=== PATIENT | male | born 1990 | race Caucasian/White ===

== ENCOUNTER 2023-12-23 06:16 | Emergency (ER) | payer MEDICARE, MEDICAID, SELFPAY ==
[2023-12-23 06:22] VITALS: BP 132/94; PULSE 61; RESP 16; TEMP 36.7; O2SAT 98; BMI 34.3
[2023-12-23] MEDS: METHYLPREDNISOLONE SOD SUCC PF 125 MG/2 ML VIAL IM (06:43)
--- NOTE | 2023-12-23 06:43 | ED.GENADUL1 ---
HPI - General Adult General Chief complaint: Dental/Oral Stated complaint: SORE THROAT Time Seen by Provider: 12/23/23 06:28 Source: patient Mode of arrival: walk-in Limitations: no limitations History of Present Illness HPI narrative: Patient woke this morning with sensation of throat swelling - he denied pain - said that it felt like the throat was swollen. He is still able to talk and swallow and control his secretions. No fever or vomiting. No ear pain, nasal congestion or runny nose. Nothing taken at home for this. he told the nurse that he has gotten this before - between winter and spring . Related Data Home Medications Medication Instructions Recorded Confirmed No Known Home Medications 12/23/23 12/23/23 Allergies Allergy/AdvReac Type Severity Reaction Status Date / Time No Known Drug Allergies Allergy Verified 12/23/23 06:25 Exam Narrative Exam Narrative: Nurses notes and vital signs reviewed and patient is not hypoxic. afebrile General: Well-appearing and in no apparent distress. Skin: Warm, dry, no pallor noted. No rash. Head: Normocephalic, atraumatic. Neck: Supple, non-tender. No cervical lymphadenopathy Eye: Pupils are equal, round and EOMI. No scleral icterus. Ears, Nose, Mouth, and Throat: TM are clear, no rhinorrhea or nasal mucosal hypertrophy. Oral mucosa is moist, minimal posterior oropharynx erythema with minimal swelling, uvula is mid-line, no exudates. Airway not compromised. Cardiovascular: Regular Rate and Rhythm without murmur, gallop or rub. Respiratory: No accessory muscle use or respiratory distress. Lungs are clear to auscultation, no wheezing, rales or rhonchi Musculoskeletal: normal ROM Neurological: A&O x4. No cranial nerve dysfunction observed. No truncal ataxia. Moves all extremities. Sensation intact. Psychiatric: Cooperative and interactive. Normal mood and affect. Constitutional Vital Signs, click to edit/add: Last Vital Signs Temp 98.1 F 12/23/23 06:22 Pulse 61 12/23/23 06:22 Resp 18 12/23/23 06:51 BP 132/94 H 12/23/23 06:22 Pulse Ox 98 12/23/23 06:22 O2 Del Method Room Air 12/23/23 06:22 Course Vital Signs Vital signs: Vital Signs Temperature 98.1 F 12/23/23 06:22 Pulse Rate 61 12/23/23 06:22 Respiratory Rate 16 12/23/23 06:22 Blood Pressure 132/94 H 12/23/23 06:22 Pulse Oximetry 98 12/23/23 06:22 Oxygen Delivery Method Room Air 12/23/23 06:22 Temperature 98.1 F 12/23/23 06:22 Pulse Rate 61 12/23/23 06:22 Respiratory Rate 18 12/23/23 06:51 Blood Pressure 132/94 H 12/23/23 06:22 Pulse Oximetry 98 12/23/23 06:22 Oxygen Delivery Method Room Air 12/23/23 06:22 Medical Decision Making MDM Narrative Medical decision making narrative: Patient was given IM Solu-Medrol and oral Benadryl in the emergency department. Strep screen was also obtained and sent for testing. Lab result pending - patient signed out to Dr Collazo at 7am shift change. Lab Data Lab results reviewed: Yes I reviewed the patient's lab results Discharge Plan Discharge Stand Alone Forms: Portal Instructions Chief Complaint: Dental/Oral Clinical Impression: Pharyngeal swelling Patient Disposition: Still a Patient Time of Disposition Decision: 06:50 Prescriptions / Home Meds: No Action No Known Home Medications Referrals: Physician,Non-Staff, MD [Primary Care Provider] - 1 week
[2023-12-23] MEDS: DIPHENHYDRAMINE HCL 25 MG CAPSULE PO (06:44)
[2023-12-23 06:51] VITALS: RESP 18
[2023-12-23 07:13] LABS: Internal Control Within Normal Limits; Strep A Antigen Screen Negative
== END 2023-12-23 07:37 | disposition home or self-care (01) ==
PROVIDERS: Emergency Medicine; Emergency Provider Emergency Medicine
DX: J02.9 Acute pharyngitis, unspecified (principal)
CPT/HCPCS: 87070; 87880; 96372; 99284; J2930

== ENCOUNTER 2024-09-27 16:54 | Emergency (ER) | payer MEDICARE, MEDICAID, SELFPAY ==
[2024-09-27 16:56] VITALS: BP 149/106; PULSE 84; TEMP 36.6; O2SAT 96; BMI 28.7
--- NOTE | 2024-09-27 17:00 | PC.NURSE ---
patient reports he has been battling congestion for the past week. Patient noted to be unkempt and has bilateral eye drainage and swelling and admits to rubbing eyes a lot
--- OUTSIDE RECORDS SUMMARY | 2024-09-27 17:19 | XMS_ITS | CCD ---
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 Name Role Phone Bina Keith Unavailable Medications Current Medications Medication Drug Class(es) Dates Sig (Normalized) Sig (Original) Penicillin (1 source) Start: 08-21-2022 take 1 tablet by mouth three times daily Penicillin VK 500mg 500mg 1 tab(s) Oral 3 times a day for 10 day(s) Aug, Active Problems Problem Classification Problem Date Documented Da te Episodic/Chronic Disorders of teeth and jaw (2 sources) Dental caries, unspecified; Translations: [Other specified disorders of teeth and supporting structures] Episodic Immunizations and screening for infectious disease (2 sources) Contact with and (suspected) exposure to other viral communicable diseases; Translations: [Contact with and (suspected) exposure to other viral communicable diseases] Episodic Other upper respiratory infections (1 source) Acute upper respiratory infection, unspecified Episodic Results Test Name Value Interpretation Reference Range Facil ity COVID/FLU RT-PCRon SARS-CoV-2 (COVID-19) RNA ROBINSON+probe Ql (Unsp spec) Negative [employer] Other COVID/FLU RT-PCR Negative [facility] Other Quick Strepon 10-14-2022 S. pyogenes Org specific cx Ql (Throat) Negative [facility] [employer] [facility] Other Quick Strep [employer] Other Vital Signs Date Time Vital Sign Value Performing Clinician Facility 10-14-2022 11:30-0500 Body height 175.26 cm Bina Keith Other [facility] Other 01-07-2023 11:30-0500 Body mass index (BMI) [Ratio] 31.75 kg/m2 Bina Inna Other [facility] Other 10-14-2022 11:30-0500 Body temperature 98 [degF] Bina Inna Other [facility] Other 10-14-2022 11:30-0500 Body weight 97.52 kg Bina Inna Other [facility] Other 10-14-2022 11:30-0500 Diastolic blood pressure 78 mm[Hg] Bina Inna Other [facility] Other 10-14-2022 11:30-0500 Respiratory rate 18 /min Bina Inna Other [facility] Other 10-14-2022 11:30-0500 SaO2% (BldA) [Mass fraction] 98 % Bina Inna Other [facility] Other 10-14-2022 11:30-0500 Systolic blood pressure 137 mm[Hg] Bina Inna Other [facility] Other 08-21-2022 16:05-0500 Body height 175.26 cm Bina Inna Other [facility] Other 08-21-2022 16:05-0500 Body mass index (BMI) [Ratio] 30.86 kg/m2 Bina Inna Other [facility] Other 08-21-2022 16:05-0500 Body temperature 97.2 [degF] Bina Inna Other [facility] Other 08-21-2022 16:05-0500 Body weight 94.8 kg Bina Keith Other [facility] Other 08-21-2022 16:05-0500 Respiratory rate 18 /min Bina Keith Other [facility] Other 08-21-2022 16:05-0500 SaO2% (BldA) [Mass fraction] 99 % Bina Keith Other [facility] Other Encounters Encounter Date Encounter Type Care Provider Facility Start: 10-14-2022 End: 10-14-2022 ambulatory Bina Inna Other [facility] Other Start: 10-14-2022 Office outpatient vi sit 25 minutes Bina Keith [facility] Start: 08-21-2022 End: 08-21-2022 ambulatory Bina Inna Other [facility] Other Start: 08-21-2022 Office outpatient ne w 20 minutes Bina Keith [facility] Payers Date Payer Category Payer Medicare [id number] Medicaid [id number] 2. [id number] Medicare [id number] 2.1 [id number] Social History Date Type Detail Facility Sex Assigned At [facility] Other Evaluation note 10-14-2022 Note Date & Type Note Facility 10-14-2022 Evaluation note Encounter Date Diagnosis Assessment Notes Oct, Contact with and (suspected) exposure to other viral communicable diseases (ICD-10 - Z20.828) Oct, Viral upper respiratory infection (ICD-10 - J06.9) Viral upper respiratory infection: adult home care material was printed Drink plenty fluids, get plenty of rest. Take Tylenol or Motrin as needed for aches pains or fevers. Follow-up with your family physician if no improvement in 2 to 3 days [facility] Other Evaluation note 08-21-2022 Note Date & Type Note Facility 08-21-2022 Evaluation note Encounter Date Diagnosis Assessment Notes Aug, Dental decay (ICD-10 - K02.9) Tooth decay home care material was printed Drink plenty fluids, get plenty of rest. Take the penicillin as prescribed until gone. Take ibuprofen, 600 mg 3-4 times a day with food as needed for mild to moderate pain. For severe pain add 2 extra strength Tylenol to your Motrin dose. Follow-up with your dentist as soon as possible. Aug, Dentalgia (ICD-10 - K08.89) [facility] Other Additional Source Comments REASON FOR VISIT (unrecogniz ed section and content) BOTTOM LEFT TOOTH/JAW PAIN, POSS INFECTIONSORE THROAT, CONGESTION FOR RECORDS PERTAINING TO PATIENTS WHO ARE OR HAVE BEEN ENROLLED IN A CHEMICAL DEPENDENCY/SUBSTANCEABUSE PROGRAM, SOME INFORMATION MAY BE OMITTED. This clinical summary was aggregated from multiple sources. Caution should be exercised in using it in the provision of clinical care. This summary normalizes information from multiple sources, and as a consequence, information in this document may materially change the coding, format and clinical context of patient data. In addition, data may be omitted in some cases. CLINICAL DECISIONS SHOULD BE BASED ON THE PRIMARY CLINICAL RECORDS. [facility]. provides no warranty or guarantee of the accuracy or completeness of information in this document.
--- NOTE | 2024-09-27 17:21 | XR_ITS ---
[address] [address] Patient Name: OMARI KAMINSKI MRN: [id number] date: 1990 Sex: M Assigned Patient Location: ER Current Patient Location: Accession/Order Number: [id number] Exam Date: 09/27/2024 17:35 Report Date: 09/27/2024 20:04 At the request of: TOMMIE BALBUENA Procedure: XR chest 1V PORTABLE CHEST X-RAY. INDICATION: Cough. COMPARISON: None. TECHNIQUE: Single AP portable chest radiograph. FINDINGS: TUBES AND LINES: None. LUNGS: Lungs are clear. PLEURA: No effusions or pneumothorax. HEART AND MEDIASTINUM: Within normal limits for portable technique. OSSEOUS STRUCTURES: No acute abnormality. XR/XR chest 1V IMPRESSION: No acute findings. Electronically authenticated by: KAYLEE CHAUHAN Date: 09/27/2024 20:04
[2024-09-27] MEDS: ERYTHROMYCIN OP OINT 0.5% 1 GM TUBE EYE-BOTH (17:36)
--- NOTE | 2024-09-27 17:56 | ED_ITS ---
HPI - URI/Sore Throat General Chief Complaint: Upper Respiratory Infection Stated Complaint: SICKNESS Time Seen by Provider: 09/27/24 17:15 Source: patient Limitations: no limitations History of Present Illness HPI Narrative: Patient coming to us with generalized feeling of being sick, associated with a cough that is the main concern that he is here in addition to bilateral eye irritation and drainage, the patient mentioned that he have some sore throat also earlier. The patient has a history of smoking less than 1 pack/day No history of shortness of breath Related Data Previous Rx's ?Medication ?Instructions ?Recorded guaifenesin 600 mg tablet, 600 mg PO BID PRN cough #10 tabs 09/27/24 extended release 12 hr (Mucinex) tobramycin 0.3 % eye drops 2 drp ophthalmic (eye) Q4H #5 mL 09/27/24 Allergies Allergy/AdvReac Type Severity Reaction Status Date / Time No Known Drug Allergies Allergy Verified 12/23/23 06:25 Review of Systems ROS Status of ROS 10 or more systems reviewed and unremark able except as noted in history and below PFSH PFSH Social History Little interest or pleasure in doing things: not at all Feeling down, depressed, or hopeless: not at all Exam Narrative Exam Narrative: Nurses notes and vital signs reviewed and patient is not hypoxic. General: Well-appearing and in no apparent distress. Skin: Warm, dry, no pallor noted. No rash. Head: Normocephalic, atraumatic. Neck: Supple, non-tender. Eye: Pupils are equal, round and there is conjunctival erythema bilaterally no hyphema or hypopyon and there is no signs of ulceration, pupils are reactive Ears, Nose, Mouth, and Throat: TM are clear, no nasal mucosal hypertrophy. Oral mucosa is moist, no posterior oropharynx erythema, uvula is mid-line Cardiovascular: Regular Rate and Rhythm without murmur, gallop or rub. Respiratory: Decreased air entry bilaterally with some rhonchi heard in the left side Back: No midline thoracic or lumbar vertebral tenderness. No CVA tenderness Musculoskeletal: normal ROM, no calf or popliteal tenderness, no lower extremity edema/swelling GI: Abdomen is soft, non-distended. Normal bowel sounds. No masses appreciated. No tenderness to palpation. No rebound, guarding, or rigidity noted. Neurological: A&O x4. No cranial nerve dysfunction observed. No truncal ataxia. Moves all extremities. Sensation intact. Psychiatric: Cooperative and interactive. Normal mood and affect. Constitutional Vital Signs, click to edit/add: Last Vital Signs Temp 97.9 F 09/27/24 16:56 Pulse 84 09/27/24 16:56 Resp 16 09/27/24 16:56 BP 149/106 H 09/27/24 16:56 Pulse Ox 96 09/27/24 16:56 O2 Del Method Room Air 09/27/24 16:56 Course Vital Signs Vital signs: Vital Signs Temperature 97.9 F 09/27/24 16:56 Pulse Rate 84 09/27/24 16:56 Respiratory Rate 16 09/27/24 16:56 Blood Pressure 149/106 H 09/27/24 16:56 Pulse Oximetry 96 09/27/24 16:56 Oxygen Delivery Method Room Air 09/27/24 16:56 Temperature 97.9 F 09/27/24 16:56 Pulse Rate 84 09/27/24 16:56 Respiratory Rate 16 09/27/24 16:56 Blood Pressure 149/106 H 09/27/24 16:56 Pulse Oximetry 96 09/27/24 16:56 Oxygen Delivery Method Room Air 09/27/24 16:56 MDM - URI/Sore Throat MDM Narrative Medical decision making narrative: The patient presents to us with a typical conjunctivitis mostly bacterial he will be started on erythromycin Chest x-ray showed no acute pathology the patient was to have bronchitis only Mucinex supportive care The patient is to follow up with primary care physician in next 2-3 days or to return to the emergency department should any of the signs or symptoms worsen or new symptoms develop. The patient agrees with the following Diagnosis and Treatment plan and the patient will be discharged home. Discharge Plan Discharge Chief Complaint: Upper Respiratory Infection Clinical Impression: Bronchitis Conjunctivitis Qualifiers: Conjunctivitis type: acute Acute conjunctivitis type: bacterial Laterality: bilateral Qualified Code(s): H10.33 - Unspecified acute conjunctivitis, bilateral Patient Disposition: Home, Self-Care Time of Disposition Decision: 17:58 Condition: Good Prescriptions / Home Meds: New tobramycin 0.3 % drops 2 drp ophthalmic (eye) Q4H Qty: 5 0RF Rx Instructions: please apply for both eyes guaifenesin [Mucinex] 600 mg tablet extended release 12hr 600 mg PO BID PRN (Reason: cough) Qty: 10 0RF Print Language: Bhutanese Instructions: Acute Bronchitis (ED), Conjunctivitis (ED) Referrals: Physician,Non-Staff, MD [Primary Care Provider] - 1 week Discharge Date/Time: 09/27/24 18:42
== END 2024-09-27 18:42 | disposition home or self-care (01) ==
PROVIDERS: Emergency Provider Emergency Medicine
DX: J40 Bronchitis, not specified as acute or chronic (principal); H10.33 Unspecified acute conjunctivitis, bilateral; F17.210 Nicotine dependence, cigarettes, uncomplicated
CPT/HCPCS: 71045; 99284